=== PATIENT | male | born 1985 | race African-American/Black ===

== ENCOUNTER 2016-11-27 01:36 | Emergency (ER) | payer OTHER ==
[~2016-11-27] VITALS: Ht 188 cm; Wt 72.7 kg
[2016-11-27] MEDS ORDERED: IBUPROFEN 600MG TABLET PO ONE (05:15)
[2016-11-27 05:36] VITALS: BP 106/72
== END 2016-11-27 06:18 | disposition home or self-care (01) ==
LOC: ER 01:36
DX: M79.672 Pain in left foot (principal); M79.671 Pain in right foot; M79.1 Myalgia; F17.210 Nicotine dependence, cigarettes, uncomplicated; F12.10 Cannabis abuse, uncomplicated; F15.10 Other stimulant abuse, uncomplicated
CPT/HCPCS: 99283; Z7610

== ENCOUNTER 2020-06-04 14:10 | Emergency (ER) | payer MEDICAID, OTHER ==
[~2020-06-04] VITALS: Ht 175.3 cm; Wt 73.0 kg
[2020-06-04 14:12] VITALS: BP 124/85
== END 2020-06-04 14:40 | disposition left against medical advice (07) ==
LOC: ER 14:22
DX: F19.10 Other psychoactive substance abuse, uncomplicated (principal); Z91.19 Patient's noncompliance with other medical treatment and regimen
CPT/HCPCS: 93005; 99283